=== PATIENT | female | born 1950 | race Caucasian/White ===

== ENCOUNTER 2022-03-31 07:18 | Outpatient (CLI) | payer MEDICARE, OTHER, SELFPAY ==
[2022-03-31 07:58] LABS: Estimated Glomerular Filt Rate 60 ml/min
--- NOTE | 2022-03-31 08:00 | CRLHL7_ITS ---
For Patients: As a result of the Century Cures Act, medical imaging exams and procedure reports are released immediately into your electronic medical record. You may view this report before your referring provider. If you have questions, please contact your health care provider. Indication: Lung cancer surveillance Technique: Contrast CT chest Comparison: CT chest 08/09/2021 Findings: Postoperative changes right-sided thoracotomy and pneumonectomy. Heart size normal. Normal caliber thoracic aorta. Compensatory hyperexpansion of left mediastinal shift to the right findings are stable. Minimal chronic fluid in the in the right hemithorax. No suspicious findings in left lung. Moderate hiatal hernia No suspicious bony lesions are seen. Impression: 1. Stable CT no findings for recurrence or metastatic disease. Please note that all CT scans at this facility use dose modulation, iterative reconstruction, and/or weight-based dosing when appropriate to reduce radiation dose to as low as reasonably achievable. Dictated by Diana Rendon MD @ 03/31/2022 9:05:37 AM (Electronically Signed)
== END 2022-03-31 07:19 | disposition home or self-care (01) ==
PROVIDERS: PCP Family Medicine; Visit Provider Internal Medicine Hematology & Oncology
DX: C34.90 Malignant neoplasm of unspecified part of unspecified bronchus or lung (principal); Z08 Encounter for follow-up examination after completed treatment for malignant neoplasm
CPT/HCPCS: 36415; 71260; 82565; Q9967

== ENCOUNTER 2022-06-19 09:52 | Outpatient (CLI) | payer MEDICARE, OTHER, SELFPAY ==
--- NOTE | 2022-06-19 10:15 | CRLHL7_ITS ---
For Patients: As a result of the Century Cures Act, medical imaging exams and procedure reports are released immediately into your electronic medical record. You may view this report before your referring provider. If you have questions, please contact your health care provider. ULTRASOUND-GUIDED BREAST BIOPSY AND POST-BIOPSY DIGITAL MAMMOGRAM FOR BIOPSY MARKER PLACEMENT CLINICAL HISTORY: Suspicious nodule RIGHT breast. COMPARISON STUDIES: 06/17/2022. TECHNIQUE: Real-time ultrasound with image documentation was used for targeting the breast lesion. Core biopsy specimens were obtained using an automated gun with an 18-gauge biopsy needle. Post-biopsy CC and ML digital mammograms were obtained to document position of the biopsy marker. CONSENT and TIME OUT: The procedure, risks, and alternatives were explained to the patient and a consent was signed. [place] Protocol was followed including pre-procedure verification that relevant information/documentation was available, reviewed and properly matched to the patient; consent accurate and complete; and equipment and supplies available. Time Out was conducted just prior to starting procedure to verify the four required elements: patient identity, correct side/site marked (if applicable), procedure, relevant images/results properly labeled and displayed (if applicable). PROCEDURE: The patient was positioned supine on the ultrasound table. The breast was prepped with ChloraPrep. 5 cc of 1 percent lidocaine used for local anesthesia. Core samples were obtained. A sterile metal biopsy clip was placed percutaneously to rupali the lesion position within the breast. The specimens were placed in 10% formalin and sent to the pathology department. Pressure was held on the biopsy site until all bleeding subsided. The skin incision was closed with Steri-Strips. An ice pack was positioned over the biopsy site. Post-biopsy instructions were reviewed with the patient, and a written copy was given to her. LATERALITY: RIGHT breast. LESION: Small spiculated microlobulated hypoechoic nodule measuring 6 x 3 x 4 millimeters at 1 o`clock 9 cm from the nipple. SUSPICION FOR MALIGNANCY: High. NUMBER OF SAMPLES: 5. BIOPSY CLIP SHAPE: Oval. PROXIMITY OF CLIP TO TARGET: 5 millimeters away from the lesion. IMPRESSION: Ultrasound-guided breast biopsy. When the pathology report is available, an addendum to this report will be made. ACR not applicable Dictated by Agapito Rosenberg MD @ 06/19/2022 11:19:57 AM jj/Dictated by: Agapito Rosenberg MD @ 06/19/2022 11:19:00 AM ----ADDENDUM---- Pathology consistent with grade I invasive ductal carcinoma. This is concordant. Appropriate action recommended. Dictated by: Agapito Rosenberg MD @06/25/2022 9:36:37 AM (Electronically Signed)
--- NOTE | 2022-06-19 11:00 | CRLHL7_ITS ---
For Patients: As a result of the Century Cures Act, medical imaging exams and procedure reports are released immediately into your electronic medical record. You may view this report before your referring provider. If you have questions, please contact your health care provider. PLEASE SEE ULTRASOUND-GUIDED RIGHT BREAST BIOPSY PERFORMED SAME DAY CRL:[email or web address] glez/Dictated by: Agapito Rosenberg MD @ 06/19/2022 11:20:00 AM (Electronically Signed)
== END 2022-06-19 09:53 | disposition home or self-care (01) ==
LOC: US 09:53
PROVIDERS: PCP Family Medicine; Visit Provider Family Medicine
DX: N63.10 Unspecified lump in the right breast, unspecified quadrant (principal); C50.911 Malignant neoplasm of unspecified site of right female breast; R92.8 Other abnormal and inconclusive findings on diagnostic imaging of breast
CPT/HCPCS: 19083; 77065; 88305; 88360; 88361; A4648; A4649

== ENCOUNTER 2022-07-03 12:26 | Outpatient (CLI) | payer MEDICARE, OTHER, SELFPAY ==
--- NOTE | 2022-07-03 13:00 | CRLHL7_ITS ---
For Patients: As a result of the 21st Century Cures Act, medical imaging exams and procedure reports are released immediately into your electronic medical record. You may view this report before your referring provider. If you have questions, please contact your health care provider. BILATERAL BREAST MRI WITHOUT AND WITH GADOLINIUM 07/03/2022 CLINICAL HISTORY: 71-year-old woman with RIGHT breast invasive ductal carcinoma 1 o???clock, 9 cm from the nipple. Ultrasound-guided biopsy irregular mass measuring 0.6 cm. INDICATION FOR BREAST MRI: Staging of newly diagnosed breast cancer and screening of contralateral breast. Regional lymph nodes will also be assessed. COMPARISON STUDIES: Mammogram 05/30/2022. CONTRAST: 15 cc Dotarem. TECHNIQUE: The patient was positioned prone using a breast coil. Multiple imaging sequences were obtained using 1-1.5 mm thick slices with no gap. The image sequences include T2-weighted STIR in the axial plane, T1-weighted nonfat-saturated gradient echo in the axial plane, pre- and post-contrast T1-weighted FLASH 3D with fat suppression in the axial plane, and T1-weighted FLASH high-resolution 3D with fat suppression in the sagittal plane. Image post-processing was performed on a [employer] workstation. Complex 3D rendering including maximum intensity projections (MIPS) and volumetric renderings were obtained to optimize visualization of the extent of pathology and relationship to the nipple, skin, and chest wall. This aids in determining feasibility of breast conservation surgery. Subtraction, multiplanar reconstruction, mean curve determination, and angiogenesis mapping were also performed. The study was technically adequate. FINDINGS: Amount of Fibroglandular Tissue: Almost entirely fatty. Breast background enhancement: Mild. RIGHT breast: 1.0 x 0.6 x 0.5 cm mass enhancement posteromedial RIGHT breast, 1 o???clock corresponds to the biopsy-proven malignancy with an adjacent clip. No other suspicious enhancement for malignancy RIGHT breast. LEFT breast: No suspicious enhancement for malignancy. Lymph nodes: Axillary lymph nodes are symmetric and appear within normal in size and morphology. Other findings: None. IMPRESSIONS AND RECOMMENDATIONS: 1. Mass enhancement posteromedial RIGHT breast 1 o???clock measuring 1.0 cm in greatest dimension, corresponds to the biopsy-proven malignancy. No evidence for malignancy elsewhere RIGHT breast, or in the contralateral LEFT breast. 2. Axillary lymph nodes appear preserved. 3. Recommend surgical/oncologic management directed by Dr. Alfie. BI-RADS: BI-RADS Category 6: Known Biopsy-Proven Malignancy Meagan Samuel M.D. Body/Breast Radiologist [email or web address] Transcribed: 9:44 a.m. DW/Dictated by: Meagan Samuel MD @ 07/09/2022 9:31:00 AM (Electronically Signed)
== END 2022-07-03 12:27 | disposition home or self-care (01) ==
LOC: MRI 12:28
PROVIDERS: PCP Family Medicine; Visit Provider Surgery
DX: C50.211 Malignant neoplasm of upper-inner quadrant of right female breast (principal); N63.10 Unspecified lump in the right breast, unspecified quadrant; Z17.0 Estrogen receptor positive status [ER+]
CPT/HCPCS: 77049; 97110; 97162; A9575

== ENCOUNTER 2022-07-04 07:30 | Outpatient (RCR) | payer MEDICARE, OTHER, SELFPAY ==
--- NOTE | 2022-07-03 10:10 | PT.OPEX ---
PT [place] Outpatient Eval PT [facility] Outpatient Eval Start: 06/30/22 12:27 Freq: Status: Active Protocol: Document 07/03/22 09:46 KIRAN (Rec: 07/03/22 10:02 SEW [id number]) E-signed By Daiana Catherine DPSylvain Physical Therapy Outpatient Evaluation Insurance Information Recert Due Date 10/01/22 Insurance Name Medicare B Medical Diagnosis Breast cancer, right Treating Diagnosis impaired posture, impaired L shoulder ROM, decreased endurance and baseline fatigue Referring MD Dr. Irena Judge Subjective Subjective Pt seen for pre-operative visit for therapy regarding planned R lumpectomy and SNLB in the near future (likely mid June) by Dr. Judge. She was diagnosed with R breast cancer with mammogram recently . She will have another MRI today to check for any other tumors or spots that need to be addressed, and hoping they set the surgery date soon. She will also likely need radiation. She has had past hx of lung cancer 5 years ago with R lung being removed. She also received chemo at that time. In remission now. Has baseline shortness of breath that limits her walking to about 1 block. She used to walk further a year or two ago . Hx of L shoulder Issues where the shoulder will ache or hurt with lifting or even with touching it sometimes. Currently not flared up and denies pain. At baseline she does most of the housework, cooking, her helps with vacuuming and will help following surgery. No other hx of surgeries or medical hx that is pertinent. Pain Comments L shd occasionally aches Current Work Status Retired Precautions Treatment Precautions/Contraindications Past hx of Lung cancer (R lung removed 5 years ago with chemo treatment), has baseline decreased endurance and fatigue with this. Therapy Limitations/Systems Review Not Limited Objective Range of Motion Shoulder ROM: flexion: L 145 deg; R 167 deg Abduction: L 160 deg; R 165 deg IR: Bilat to T10, with pull felt on L ER: L to C7, R to T2 Scaption: L 155 deg, R 165 deg Elbow wrist and hand ROM WNL's Strength MMT: L grossly 4/5 with UE testing; R grossly 5/5 - no pain Swelling none Palpation shoulders not tender to touch Balance & Gait normal, ambulatory Posture Rounded shoulders Sensation/Reflexes intact Other/Pertinent Objective GH joint mobility: Normal on R , reduced posterior glide and tightness on L Functional Test Performed & Score SPADI initial: 1/130 points (0 .769%) Assessment Assessment/Impression Patient presents to PT pre- operatively for planned Breast Cancer surgery to include right lumpectomy and planned SLNB with surgery date to be determined (but likely will occur mid-June). Assessment today included baseline UE ROM, postural, and joint mobility measurements which are to be compared to measurements retaken 4 weeks post-surgery. At that time, any reduced movement, decline in function, or postural issues will be addressed with skilled care and new goals will be established. Education was given today regarding post-operative signs of infection, axillary cording, seroma formation, and home program to be performed within the first 3-4 weeks post-operatively focusing on UE mobility within surgical restrictions. Primary Functional Limitations overhead reach, fatigue limits ADL's and exercise Plan of Care Rehabilitation Potential Excellent Physical Therapy Goals Within 1 visit: 1. Pt demonstrates awareness of post-operative movement restrictions and HEP to facilitate lymphatic regeneration and reduce the risk of seroma formation, axillary web syndrome and lymphedema while ensuring shoulder joint mobility. Coordination/Communication With Referral Source Treatment Plan/Direct Interventions Joint Mobilization,Manual Therapy,Neuromuscular Re-ed, Self-Care/Home Management, Therapeutic Activities, Therapeutic Exercises Frequency/Duration 1 pre-operative visit; with post-operative evaluation and treatment timeframe to be determined later Patient Will Be Discharged From Therapy Completion of LTG(s),Skills Plateau,Independent w/HEP, Independently Progressing Evaluation Billing Untimed Code Treatment Minutes 30 Complexity Moderate Certification Information Initial Certification Date 07/03/22 Ending Certification Date 10/01/22 Provider Signature Shows Agreement With POC & Medical Necessity Physician Signature & Date Requested Please Sign/Date Here Physician Comment/Change : Physician NPI Number #
--- NOTE | 2022-07-04 12:39 | OT.OPLE ---
OT Outpatient Lymphedema Eval OT Outpatient Lymphedema Eval Start: 07/04/22 07:30 Freq: Status: Active Protocol: Document 07/04/22 11:57 AMB (Rec: 07/04/22 12:38 AMB [id number]) E-signed By Lila Guadarrama, OTR/L, CLT, CAR DELIVERER OT Outpatient Evaluation Details Type Type Eval Complexity Low OT OP Lymphedema Evaluation Insurance Information Insurance Information Medicare B Current Condition/Medical Diagnosis Referring Provider Dr Judge Treatment Diagnosis R breast cancer / lymphedema risk Date Of Onset TBD Medical Contraindications CA Current Work Status Current Work Status Retired Subjective Subjective Pt is a very pleasant 71yo female recently diagnosed with right sided breast cancer. Pt presents to OT with her supportive for initiation of lymphedema surveillance program and pt education. Pt states her diagnosis was difficult to swallow as she just celebrated her 5 year survival rupali from lung cancer for which she had her right lung removed in 2017. Pt states she is interested in learning more about lymphedema and how she can reduce her risks as she feels she is alreay overwhelmed with all of her other cancer stuff. Pt states she's been feeling ok and anxious to get her surgery behind her. Pt will have a lumpectomy with SLN biopsy but the date has not yet been determined. Pt will likely have radiation following her surgery. Pt states she did have an MRI yesterday to determine if there are any other spots but she has not heard results yet. Pt states she likes to stay active and really enjoys walking but has more difficulty with this now after her lung removal, gets SOB. Pt states she does a lot of housework and enjoys cooking, pt's will help prn following surgery. Medical History Medical History Cancer Treatment/Surgery Medical History Comments S/P pneumonectomy on the Right secondary to lung cancer 5 years ago, also received chemo but not radiation, anemia, and a injury to her left shoulder as a teenager and states she has always favored her left arm as it is always painful. Family History Family History of Lymphedema No Living Situation Current Living Situation Home With Spouse Or SO Patient Difficulties Patient Difficulties Comments Pt has difficulty with exercise due to breathing difficulties following her lung removal in 2017. Exercise History Does Patient Exercise Regularly No Pain Pain No Pain Comments Chronic aching in her shoulder due to hx of shld injury as a teenager. Loss of Function/Strength/Mobility Loss Of Function/Strength/Mobility No Circumferential Measurements Upper Extremity Left Upper Extremity MCP 20.2 Palm 20.3 Wrist 17.0 10cm 21.5 20cm 28.4 30cm 33.5 40cm 37.0 Total 177.9 Right Upper Extremity MCP 20.5 Palm 21.0 Wrist 17.4 10cm 22.2 20cm 29.0 30cm 35.5 40cm 40.5 Total 186.1 Assessment Assessment Pt presents pre-operatively for initiation of lymphedema surveillance program. Following her lumpectomy (not yet scheduled) with SLN biopsy , pt will be at risk for lymphedema in her LUE / upper quadrant due to LN removal. Pt may need radiation which would add to her risk. Pt will benefit from skilled OT intervention for pt education, monitoring / surveillance in order to provide early detection / intervention to assure best positive outcomes with fewer lymphedema related complications if the need arises. Baseline measurements were established today as noted above. Interestingly, pt's RUE measured considerably larger than the LUE. In discussing this with pt, it was discovered that she injured her left shoulder as a teenager and never went in to have it checked. Pt still has limitations in this extremity and states she has protected it for years which leads me to wonder if the circumferential differences are from better muscle development in her RUE due to using it vs minimal use of LUE throughout the years? Will need to consider this when using post-op measurements for comparison. Pt demonstrates good interest and motivation to be an active participant in her care. Pt asked multiple pertinent questions and received satisfactory answers. Pt was given contact info and encouraged to reach out if more questions arise. Pt does have a regular exercise routine and likes to keep active, lives a healthy lifestyle and acknowledges the value in regular medical visits. Problem List Problem List Limited Knowledge of Lymphedema Treatment/Condition /Precautions,Limited Knowledge of Skin Care & Infection Precautions,Significant Risk For Infection For Lymphedema Related Complications,Does Not Have a HEP Patient Goals Patient Goals 1. Pt will demonstrate a general understanding of the lymphatic system, s/s of lymphedema, treatment of lymphedema, implications of untreated lymphedema, s/s of infection and the correlation of infection related to lymphedema. 3 months 2. Pt will be compliant with quarterly assessments for lymphedema surveillance in order to obtain early intervention with best outcomes if needed. 12 months Treatment Plan Treatment Plan Evaluation,Edema Control, Manual Therapy,Wound Care/Scar Management,Therapeutic Exercise,Therapeutic Activities,Self-Care/Home Management,Caregiver Training, Education Other Treatment Plan 1 visit 4weeks p/o then qtly x12 months Certification Certification I Certify That: Therapy Services Provided, Therapy Plan Established, Therapy Plan Reviewed Recertification Information Recertification Information Initial Certification Date 07/04/22 Recertification Due Date 10/02/22 Reasons to Continue Skilled Therapy Initiated OT for lymphedema surveillance and pt education today Rehabilitation Potential Good Provider Signature Shows Agreement With POC & Medical Necessity Physician Comment/Change Comment or Changes Physician NPI Number #
--- NOTE | 2022-07-22 16:02 | ONC.NURNOTE ---
Jorge for pt reviewing changes in [facility] program and Dr. Camacho's return to [facility] in late Spring as a [place] provider. Pt is due 03/2023 to f/u [facility]; pt is following at [facility] for breast care.
== END 2023-01-15 23:59 | disposition home or self-care (01) ==
PROVIDERS: PCP Family Medicine; Visit Provider Surgery
DX: M25.512 Pain in left shoulder (principal); R53.83 Other fatigue; Z51.89 Encounter for other specified aftercare
CPT/HCPCS: 97110; 97162; 97165; 97535

== ENCOUNTER 2022-08-14 12:43 | Outpatient (CLI) | payer MEDICARE, OTHER, SELFPAY ==
--- NOTE | 2022-08-14 13:00 | CRLHL7_ITS ---
For Patients: As a result of the Century Cures Act, medical imaging exams and procedure reports are released immediately into your electronic medical record. You may view this report before your referring provider. If you have questions, please contact your health care provider. DXA BONE MINERAL DENSITY STUDY Reason for exam: Baseline bone mineral density scan; newly diagnosed cancer. Current height (in): 61. Weight (lb): 225. Menopause age: 48. Ethnicity: White. 1. Have you had a previous hip or vertebral fracture? No. 2. Have you had any fractures during your adult life which did not result from significant trauma (e.g., auto accident)? No. 3. Did either of your parents have a hip fracture? No. 4. Do you smoke? No. 5. Have you ever taken Glucocorticoids? No. 6. Do you have rheumatoid arthritis? No. 7. Do you have secondary osteoporosis? No. 8. Do you drink 3 or more alcoholic drinks per day? No. 9. Are you being treated for osteoporosis? No. 10. Have you ever taken any of the following medications: Actonel, Evista, Fosamax, Miacalcin, Reclast, Boniva, Forteo, HRT (i.e., estrogen/hormone therapy), Protelos, Prolia, Vitamin D, Calcium, other ??? please specify. ANSWER: Yes, vitamin D and calcium. 11. Do you have any of the following medical conditions: Anorexia or bulimia, asthma or emphysema, end stage renal disease, hyperparathyroidism, any seizure disorders, cancer, inflammatory bowel diseases, hysterectomy, other ??? please specify. ANSWER: Yes, cancer. 12. What was your maximum height (inches)? 61. 13. Do you perform weight bearing exercise regularly? No. 14. Do you regularly consume dairy products? Yes. 15. Do you drink caffeinated beverages? Yes. If female: 16. At what age did your period start? 10. 17. Are you premenopausal? No. 18. How many full-term pregnancies have you had? 3. 19. Have you ever missed your period for more than 6 months in a row (not including or menopause)? No. TECHNIQUE: Bone mineral density study was performed using the [employer]. FINDINGS: The results of the study expressed as bone mineral density (BMD) are as follows: Lumbar spine L1 to L4: BMD: 0.915 g/cm2. T-score: -1.2. Z-score: 1.1 Neck Left: BMD: 0.638 g/cm2. T-score: -1.9. Z-score: 0.0 Right: BMD: 0.643 g/cm2. T-score: -1.9. Z-score: 0.1 Total Left: BMD: 0.904 g/cm2. T-score: -0.3. Z-score: 1.3 Right: BMD: 0.908 g/cm2. T-score: -0.3. Z-score: 1.4 IMPRESSION: Osteopenia. FRAX 10-year Fracture Risk Major Osteoporotic Fracture: 10% Hip Fracture: 1.9% Reported Risk Factors: [place] () Neck BMD=0.638, BMI= 42.5 Agapito Rosenberg M.D. Diagnostic Radiologist [email or web address]/Dictated by: Agapito Rosenberg MD @ 08/14/2022 2:32:00 PM (Electronically Signed)
== END 2022-08-14 12:44 | disposition home or self-care (01) ==
LOC: RAD 12:44
PROVIDERS: PCP Family Medicine; Visit Provider Nurse Practitioner Family
DX: Z79.811 Long term (current) use of aromatase inhibitors (principal); C50.919 Malignant neoplasm of unspecified site of unspecified female breast
CPT/HCPCS: 77080

== ENCOUNTER 2022-09-25 13:45 | Outpatient (RCR) | payer MEDICARE, OTHER, SELFPAY ==
--- NOTE | 2022-06-20 16:19 | ONC.NURNOTE ---
Pt called saying her [facility] portal notified her of her breast biopsy pathology report. Reviewed results with pt; scheduled to see Dr. Judge at [facility] 06/25 @ 4549. Email sent asking if breast MRI or other imaging needed.
--- NOTE | 2022-08-26 14:49 | ONC.NURNOTE ---
On 08/22/22 @ 08:23 Elham Tan Wrote To Elham Tan Patient called requesting the results of her bone density.? Patient informed that it shows osteopenia.? Discussed the importance of taking her Calcium and Vit D daily as well as weight bearing exercise.? Patient also informed that her oncology team may discuss the use of bisphosphonate treatment with her at her follow up visit.? Patient states she is tolerating the Anastrozole well.? Denies any concerns.
== END 2022-09-29 23:59 | disposition home or self-care (01) ==
LOC: CCIC 13:45
PROVIDERS: PCP Family Medicine; Visit Provider Nurse Practitioner Family
DX: C50.911 Malignant neoplasm of unspecified site of right female breast (principal); Z17.0 Estrogen receptor positive status [ER+]; Z79.811 Long term (current) use of aromatase inhibitors; C34.91 Malignant neoplasm of unspecified part of right bronchus or lung; R05.9 Cough, unspecified
CPT/HCPCS: 99202; 99205; 99212; 99213; 99214; 99215

== ENCOUNTER 2023-06-15 12:50 | Outpatient (RCR) | payer MEDICARE, OTHER, SELFPAY | END 2023-07-07 23:59 | disposition home or self-care (01) | LOC: CCIC 12:50 | PROVIDERS: PCP Family Medicine; Visit Provider Physician Assistant | DX: C50.911 Malignant neoplasm of unspecified site of right female breast (principal); Z17.0 Estrogen receptor positive status [ER+]; C34.91 Malignant neoplasm of unspecified part of right bronchus or lung; M85.80 Other specified disorders of bone density and structure, unspecified site; I10 Essential (primary) hypertension; Z79.811 Long term (current) use of aromatase inhibitors | CPT/HCPCS: 99212; 99214; 99215 ==

== ENCOUNTER 2023-12-15 08:41 | Outpatient (CLI) | payer MEDICARE, OTHER, SELFPAY ==
--- NOTE | 2023-12-15 09:00 | CRLHL7_ITS ---
For Patients: As a result of the Century Cures Act, medical imaging exams and procedure reports are released immediately into your electronic medical record. You may view this report before your referring provider. If you have questions, please contact your health care provider. INDICATION: Lung cancer screening. History of smoking. Also history of breast cancer. Prior right pneumonectomy. TECHNIQUE: Low-dose lung cancer screening non-contrast CT chest. Dose reduction techniques were used. COMPARISON: 09/23/[address] FINDINGS: NODULES: Few tiny nodules are stable. No new nodules. LUNGS AND PLEURA: Right pneumonectomy with small amount of right pleural, unchanged. MEDIASTINUM: Rightward shift due to right pneumonectomy. No adenopathy. Small hiatal hernia. CORONARY ARTERY CALCIFICATION: Present. LIMITED UPPER ABDOMEN: Normal. MUSCULOSKELETAL: Postsurgical changes in the right breast. IMPRESSION: 1. Negative for lung cancer screening purposes. 2. Right pneumonectomy. LUNG-RADS CATEGORY 2: Benign. Continue annual screening with low-dose CT chest in 12 months. Please note that all CT scans at this facility use dose modulation, iterative reconstruction, and/or weight-based dosing when appropriate to reduce radiation dose to as low as reasonably achievable. Dictated by Lyle Hoffman MD @ 12/16/2023 11:31:13 AM (Electronically Signed)
== END 2023-12-15 08:42 | disposition home or self-care (01) ==
LOC: CT 08:41
PROVIDERS: PCP Family Medicine; Visit Provider Physician Assistant
DX: Z12.2 Encounter for screening for malignant neoplasm of respiratory organs (principal); Z87.891 Personal history of nicotine dependence; Z85.3 Personal history of malignant neoplasm of breast
CPT/HCPCS: 71271

== ENCOUNTER 2024-01-14 10:11 | Outpatient (RCR) | payer MEDICARE, OTHER, SELFPAY | END 2024-07-12 23:59 | disposition home or self-care (01) | LOC: CCIC 10:11 | PROVIDERS: PCP Family Medicine; Visit Provider Physician Assistant | DX: C50.911 Malignant neoplasm of unspecified site of right female breast (principal); Z17.0 Estrogen receptor positive status [ER+]; C34.91 Malignant neoplasm of unspecified part of right bronchus or lung; Z79.811 Long term (current) use of aromatase inhibitors; M85.80 Other specified disorders of bone density and structure, unspecified site; K21.9 Gastro-esophageal reflux disease without esophagitis; I10 Essential (primary) hypertension | CPT/HCPCS: 99215; G0463 ==

== ENCOUNTER 2024-04-27 08:01 | Outpatient (CLI) | payer MEDICARE, OTHER, SELFPAY ==
--- NOTE | 2024-04-27 08:15 | CRLHL7_ITS ---
For Patients: As a result of the Century Cures Act, medical imaging exams and procedure reports are released immediately into your electronic medical record. You may view this report before your referring provider. If you have questions, please contact your health care provider. Technique: Double-contrast esophagram performed after the uneventful administration of effervescent crystals and thick barium followed by thin barium. Fluoroscopy time 1 minute 13 seconds. Indication: HIATAL HERNIA; MID EPI GASTRIC PAIN Comparison: CT 12/15/2023, 09/23/2022 Findings: Postop changes of right pneumonectomy. Irregularity of the mid esophageal mucosa may be present. There is no obstruction. Numerous tertiary contractions throughout the distal esophagus noted. Hiatal hernia is present measuring approximately 4.2 cm. Spontaneous reflux noted to the proximal esophagus. Esophageal motility is normal. Impression: 4.2 cm hiatal hernia with large volume spontaneous reflux and distal esophageal reflux esophagitis. Possible mucosal irregularity involving the mid esophagus. Consider EGD for further evaluation. Dictated by Agapito Rosenberg MD @ 04/27/2024 12:48:10 PM (Electronically Signed)
== END 2024-04-27 08:02 | disposition home or self-care (01) ==
LOC: RAD 08:02
PROVIDERS: PCP Family Medicine; Visit Provider Family Medicine
DX: R10.13 Epigastric pain (principal); K44.9 Diaphragmatic hernia without obstruction or gangrene; K21.9 Gastro-esophageal reflux disease without esophagitis
CPT/HCPCS: 74221

== ENCOUNTER 2025-01-04 15:13 | Outpatient (CLI) | payer MEDICARE, OTHER, SELFPAY ==
--- NOTE | 2025-01-04 15:30 | CRLHL7_ITS ---
For Patients: As a result of the Century Cures Act, medical imaging exams and procedure reports are released immediately into your electronic medical record. You may view this report before your referring provider. If you have questions, please contact your health care provider. DXA BONE MINERAL DENSITY STUDY Reason for exam: Long-term (current) use of aromatase inhibitors. Current height (in): 60. Weight (lb): 200. Menopause age: 48. Ethnicity: White. 1. Have you had a previous hip or vertebral fracture? No. 2. Have you had any fractures during your adult life which did not result from significant trauma (e.g., auto accident)? No. 3. Did either of your parents have a hip fracture? No. 4. Do you smoke? No. 5. Have you ever taken Glucocorticoids? No. 6. Do you have rheumatoid arthritis? No. 7. Do you have secondary osteoporosis? No. 8. Do you drink 3 or more alcoholic drinks per day? No. 9. Are you being treated for osteoporosis? No. 10. Have you ever taken any of the following medications: Actonel, Evista, Fosamax, Miacalcin, Reclast, Boniva, Forteo, HRT (i.e. estrogen/hormone therapy), Protelos, Prolia, Vitamin D, Calcium, other ??? please specify. ANSWER: Yes, vitamin D and calcium. 11. Do you have any of the following medical conditions: Anorexia or bulimia, asthma or emphysema, end stage renal disease, hyperparathyroidism, any seizure disorders, cancer, inflammatory bowel diseases, hysterectomy, other ??? please specify. ANSWER: Yes, cancer. 12. What was your maximum height (inches)? 60.5. 13. Do you perform weight bearing exercise regularly? No. 14. Do you regularly consume dairy products? Yes. 15. Do you drink caffeinated beverages? Yes. 16. At what age did your period start? 10. 17. Are you premenopausal? No. 18. How many full-term pregnancies have you had? 3. 19. Have you ever missed your period for more than 6 months in a row (not including or menopause)? No. TECHNIQUE: Bone mineral density study was performed using the [employer]. FINDINGS: The results of the study expressed as bone mineral density (BMD) are as follows: Lumbar spine L1 to L4: BMD: 0.866 g/cm2. T-score: -1.6. Z-score: 0.8. Neck Left: BMD: 0.623 g/cm2. T-score: -2.0. Z-score: 0.1. Right: BMD: 0.549 g/cm2. T-score: -2.7. Z-score: -0.6. Total Left: BMD: 0.835 g/cm2. T-score: -0.9. Z-score: 0.9. Right: BMD: 0.766 g/cm2. T-score: -1.4. Z-score: 0.3. IMPRESSION: Osteoporosis. *Comparison exams done prior to 11/2019 were performed on different unit, [employer]. COMPARISON: Compared with scan of 08/14/2022, the bone mineral density has decreased by 5.4 percent at the spine and decreased by 11.7 percent at the hip. Agapito Rosenberg M.D. Diagnostic Radiologist [email or web address] by: Agapito Rosenberg MD @ 01/04/2025 3:59:00 PM (Electronically Signed)
--- NOTE | 2025-01-04 16:00 | CRLHL7_ITS ---
For Patients: As a result of the Cures Act, medical imaging exams and procedure reports are released immediately into your electronic medical record. You may view this report before your referring provider. If you have questions, please contact your health care provider. INDICATION: Lung cancer screening. History of smoking. High risk patient with greater than 60 pack-year smoking history. TECHNIQUE: Low-dose lung cancer screening non-contrast CT chest. Dose reduction techniques were used. COMPARISON: 12/15/2023 FINDINGS: NODULES: A few scattered tiny nodules are unchanged. LUNGS AND PLEURA: Post right pneumonectomy. Emphysema left lung. MEDIASTINUM: Atherosclerotic changes. CORONARY ARTERY CALCIFICATION: Moderate. LIMITED UPPER ABDOMEN: 4.7 cm hiatal hernia. MUSCULOSKELETAL: Degenerative joint disease at both shoulders. Post right thoracotomy changes. IMPRESSION: Negative for lung cancer screening purposes. LUNG-RADS CATEGORY: 2: Benign. RADIOLOGIST RECOMMENDATION: Continue annual screening, if eligible, with low-dose CT chest in 12 months. Please note that all CT scans at this facility use dose modulation, iterative reconstruction, and/or weight-based dosing when appropriate to reduce radiation dose to as low as reasonably achievable. Dictated by Agapito Rosenberg MD @ 01/05/2025 8:36:08 AM (Electronically Signed)
== END 2025-01-04 15:14 | disposition home or self-care (01) ==
LOC: RAD 15:15
PROVIDERS: PCP Family Medicine; Visit Provider Physician Assistant
DX: Z12.2 Encounter for screening for malignant neoplasm of respiratory organs (principal); F17.210 Nicotine dependence, cigarettes, uncomplicated; Z79.811 Long term (current) use of aromatase inhibitors; M81.0 Age-related osteoporosis without current pathological fracture; C34.90 Malignant neoplasm of unspecified part of unspecified bronchus or lung
CPT/HCPCS: 71271; 77080

== ENCOUNTER 2025-01-10 13:00 | Outpatient (RCR) | payer MEDICARE, OTHER, SELFPAY | END 2025-01-10 23:59 | disposition home or self-care (01) | LOC: CCIC 13:00 | PROVIDERS: PCP Family Medicine; Visit Provider Internal Medicine Hematology & Oncology | DX: C50.911 Malignant neoplasm of unspecified site of right female breast (principal); Z17.0 Estrogen receptor positive status [ER+]; M81.0 Age-related osteoporosis without current pathological fracture; Z79.811 Long term (current) use of aromatase inhibitors; Z85.118 Personal history of other malignant neoplasm of bronchus and lung | CPT/HCPCS: 99214; 99215; G0463 ==